=== PATIENT | male | born 1995 | race Caucasian/White ===

== ENCOUNTER 2017-03-01 13:19 | Inpatient (IN) | payer OTHER ==
[~2017-03-01 13:19] MED LIST: DEXAMETHASONE SOD PHOSPHATE INJ 4 MG/1 ML VIAL ONE; ETOMIDATE INJ/PF 20 MG/10 ML SDV IV ONE; GLYCOPYRROLATE INJ 0.4 MG/2 ML VIAL ONE; LIDOCAINE 2% INJ-PF (20 MG/ML) 10 ML AMPUL ONE; METOCLOPRAMIDE HCL INJ/PF 10 MG/2 ML SDV ONE; NEOSTIGMINE METHYLSULFATE 10 MG/10 ML VIAL ONE; ONDANSETRON HCL INJ/PF 4 MG/2 ML SDV ONE; ROCURONIUM BROMIDE INJ 50 MG/5 ML VIAL IV ONE; SUCCINYLCHOLINE CHLORIDE INJ 200 MG/10 ML VIAL ONE
--- NOTE | 2017-03-01 13:50 | ER Document Report ---
ED Medical Screen (RME) - General Chief Complaint: Bloody Stools Stated Complaint: BLOOD IN STOOL,LIGHT HEADED Time Seen by Provider: 03/01/17 13:47 Notes: Patient says that he has had bleeding with his bowel movements four times this morning patient has a history of an upper GI bleed from ulcers when he was 16 years old, 5 years ago. Has not had any vomiting. Has some epigastric discomfort. No fevers. Only medication is [id number] Zantac. TRAVEL OUTSIDE OF THE [place] IN LAST 30 DAYS: No - Related Data Allergies/Adverse Reactions: cephalexin monohydrate [From Keflex] Allergy (Verified 01/03/12 03:34) codeine [Codeine] Allergy (Verified 01/03/12 03:34) Past Medical History Pulmonary Medical History: Denies: Hx Tuberculosis Neurological Medical History: Denies: Hx Seizures Renal/ Medical History: Denies: Hx Peritoneal Dialysis GI Medical History: Reports: Hx Ulcer Musculoskeltal Medical History: Reports Hx Musculoskeletal Deformity Past Surgical History: Reports: Hx Orthopedic Surgery. Denies: Hx Pacemaker - Immunizations Immunizations up to date: No Hx Diphtheria, Pertussis, Tetanus Vaccination: No Physical Exam - Vital signs Vitals: Temp Pulse Resp BP Pulse Ox 97.7 F 89 14 99/63 L 99 03/01/17 13:25 03/01/17 13:25 03/01/17 13:25 03/01/17 13:25 03/01/17 13:25 Course - Vital Signs Vital signs: Temp Pulse Resp BP Pulse Ox 97.7 F 89 14 99/63 L 99 03/01/17 13:25 03/01/17 13:25 03/01/17 13:25 03/01/17 13:25 03/01/17 13:25
[2017-03-01] MEDS ORDERED: NORMAL SALINE 1000 ML 1,000 ML IV PRN (13:54)
[2017-03-01 14:27] LABS: ABSOLUTE LYMPHOCYTES (AUTO) 0.9 10^3/uL (0.5-4.7); ABSOLUTE MONOCYTES (AUTO) 0.5 10^3/uL (0.1-1.4); ABSOLUTE NEUT (AUTO) 9.4 10^3/uL (1.7-8.2); BASOPHILS % (AUTO) 0.4 % (0-2); EOSINOPHILS % (AUTO) 0.4 % (0-6); HEMATOCRIT 36.3 % (37.9-51.0); HEMOGLOBIN 12.7 g/dL (13.5-17.0); HGB HCT DIFFERENCE 1.8; LYMPHOCYTES % (AUTO) 8.1 % (13-45); MEAN CORPUSCULAR HEMOGLOBIN 31.7 pg (27.0-33.4); MEAN CORPUSCULAR HGB CONC 35.1 g/dL (32.0-36.0); MEAN CORPUSCULAR VOLUME 90 fl (80-97); MONOCYTES % (AUTO) 4.4 % (3-13); RED BLOOD COUNT 4.02 10^6/uL (4.35-5.55); RED CELL DISTRIBUTION WIDTH 12.1 % (11.5-14.0); SEGMENTED NEUTROPHILS % (AUTO) 86.7 % (42-78); WHITE BLOOD COUNT 10.9 10^3/uL (4.0-10.5)
[2017-03-01] MEDS ORDERED: PANTOPRAZOLE SODIUM 40 MG VIAL IV ONE (14:33)
[2017-03-01 14:48] LABS: ALANINE AMINOTRANSFERASE 28 U/L (21-72); ALBUMIN 3.8 g/dL (3.5-5.0); ALKALINE PHOSPHATASE 59 U/L (38-126); ANION GAP 6 (5-19); ASPARTATE AMINO TRANSFERASE 18 U/L (17-59); BILIRUBIN,DIRECT 0.3 mg/dL (0.0-0.4); BLOOD UREA NITROGEN 23 mg/dL (7-20); CALCIUM 9.7 mg/dL (8.4-10.2); CARBON DIOXIDE 27 mmol/L (22-30); CHLORIDE 106 mmol/L (98-107); CREATININE RESULT 0.93 mg/dL (0.52-1.25); GLUCOSE 108 mg/dL (75-110); LIPASE 53.2 U/L (23-300); POTASSIUM 5.4 mmol/L (3.6-5.0); SODIUM 139.3 mmol/L (137-145); TOTAL PROTEIN 6.4 g/dL (6.3-8.2)
[2017-03-01 15:23] LABS: PROTHROMBIN TIME 16.1 SEC (11.4-15.4)
[2017-03-01] MEDS: PANTOPRAZOLE SODIUM 40 MG VIAL IV PRN (15:57)
--- NOTE | 2017-03-01 16:08 | ER Document Report ---
ED GI Bleed / Rectal Pain - General Information source: Patient TRAVEL OUTSIDE OF THE [place] IN LAST 30 DAYS: No - HPI Patient complains to provider of: Bright red bld from rect., Dark red bld from rectum, Dark/tarry stools, Other - States she had a history of the same when he was approximately 16 which was the result of a bleeding ulceration in the stomach. <JESSICAMANUELJEFF Zoe - Last Filed: 03/01/17 18:38> <TERRY PEREZ - Last Filed: 03/01/17 19:13> - General Chief Complaint: Bloody Stools Stated Complaint: POSSIBLE BLOODS IN STOOL,DIZZINESS Time Seen by Provider: 03/01/17 13:47 - Related Data Allergies/Adverse Reactions: cephalexin monohydrate [From Keflex] Allergy (Verified 01/03/12 03:34) codeine [Codeine] Allergy (Verified 01/03/12 03:34) Past Medical History - General Information source: Patient - Social History Smoking Status: Never Smoker Cigarette use (# per day): No Chew tobacco use (# tins/day): No Frequency of alcohol use: None Drug Abuse: None Lives with: Family Family History: DM Pulmonary Medical History: Denies: Hx Tuberculosis Neurological Medical History: Denies: Hx Seizures Renal/ Medical History: Denies: Hx Peritoneal Dialysis GI Medical History: Reports: Hx Ulcer Musculoskeltal Medical History: Reports Hx Musculoskeletal Deformity Past Surgical History: Reports: Hx Orthopedic Surgery. Denies: Hx Pacemaker - Immunizations Immunizations up to date: No Hx Diphtheria, Pertussis, Tetanus Vaccination: No <CELESTINOJEFF Zoe - Last Filed: 03/01/17 18:38> Review of Systems - Review of Systems Constitutional: No symptoms reported EENT: No symptoms reported Cardiovascular: No symptoms reported Respiratory: No symptoms reported Gastrointestinal: No symptoms reported, Black stools, Rectal bleeding Genitourinary: No symptoms reported Male Genitourinary: No symptoms reported Musculoskeletal: No symptoms reported Skin: No symptoms reported Hematologic/Lymphatic: No symptoms reported Neurological/Psychological: No symptoms reported <CELESTINOJEFF Zoe - Last Filed: 03/01/17 18:38> Physical Exam - Vital signs Interpretation: Normal - General General appearance: Appears well, Alert - HEENT Head: Normocephalic, Atraumatic Eyes: Normal Pupils: PERRL - Respiratory Respiratory status: No respiratory distress Chest status: Nontender Breath sounds: Normal Chest palpation: Normal - Cardiovascular Rhythm: Regular Heart sounds: Normal auscultation Murmur: No - Abdominal Inspection: Normal Distension: No distension Bowel sounds: Normal Tenderness: Nontender Organomegaly: No organomegaly - Rectal Stool: Heme positive, Black, Bloody - Back Back: Normal, Nontender - Extremities General upper extremity: Normal inspection, Nontender, Normal color, Normal ROM , Normal temperature General lower extremity: Normal inspection, Nontender, Normal color, Normal ROM , Normal temperature, Normal weight bearing. No: Rich's sign - Neurological Neuro grossly intact: Yes Cognition: Normal Orientation: AAOx4 [place] Coma Scale Eye Opening: Spontaneous Verenice Coma Scale Verbal: Oriented Verenice Coma Scale Motor: Obeys Commands [place] Coma Scale Total: 15 Speech: Normal Motor strength normal: LUE, RUE, LLE, RLE Sensory: Normal - Psychological Associated symptoms: Normal affect, Normal mood - Skin Skin Temperature: Warm Skin Moisture: Dry Skin Color: Normal <JEFF TIRADO - Last Filed: 03/01/17 18:38> Course - Laboratory Result Diagrams: 03/01/17 14:13 03/01/17 14:13 <JEFF TIRADO - Last Filed: 03/01/17 18:38> - Laboratory Result Diagrams: 03/01/17 14:13 03/01/17 14:13 <TERRY PEREZ - Last Filed: 03/01/17 19:13> - Re-evaluation Re-evalutation: 03/01/17 16:05 Dr. Oates of surgery was called did not have GI science consultant. He was advised of the patient's situation with dark and bright red blood coming from the rectum history of a bleeding stomach ulceration hemoglobin and hematocrit of 12.7 and 36.3 respectively he was advised that the patient does in fact look ashen it is my suspicion that the numbers will be lower upon a redraw. The patient is not tachycardic the patient is not hypertensive patient does have Protonix IV running as well as has been provided with a fluid bolus and blood banded. Dr. Oates was kind enough to come and evaluate the patient he did request that the patient remain n.p.o. which he has been since this morning. An NPO sign was palced outside the Pt room. (JEFF TIRADO) - Vital Signs Vital signs: Temp Pulse Resp BP Pulse Ox 97.7 F 89 14 99/63 L 99 03/01/17 13:25 03/01/17 13:25 03/01/17 13:25 03/01/17 13:25 03/01/17 13:25 - Laboratory Laboratory results interpreted by me: 03/01/17 03/01/17 03/01/17 14:13 14:13 15:05 WBC 10.9 H RBC 4.02 L Hgb 12.7 L Hct 36.3 L Seg Neutrophils % 86.7 H Lymphocytes % 8.1 L Absolute Neutrophils 9.4 H PT 16.1 H Potassium 5.4 H BUN 23 H Crossmatch 03/01/17 16:00 WBC RBC Hgb Hct Seg Neutrophils % Lymphocytes % Absolute Neutrophils PT Potassium BUN Crossmatch See Detail Discharge <JEFF TIRADO - Last Filed: 03/01/17 18:38> - Discharge Admitting Provider: Surgicalist - Su Unit Admitted: ICU <TERRY PEREZ - Last Filed: 03/01/17 19:13> - Discharge Clinical Impression: Acute posthemorrhagic anemia, Acute upper gastrointestinal hemorrhage Condition: Serious Disposition: ADMITTED INPATIENT Additional Instructions: Dr. Henderson stated that this patient will be admitted to his service at 1832 hours
[2017-03-01] MEDS ORDERED: ONDANSETRON HCL INJ/PF 4 MG/2 ML SDV ONE ×2 (17:37→19:10)
[2017-03-01] MEDS ORDERED: FLUMAZENIL INJ 0.5 MG/5 ML VIAL IV ONE ×2 (17:38→19:12)
[2017-03-01] MEDS ORDERED: MIDAZOLAM 2 MG/2 ML INJ ONE ×2 (17:38→20:04)
[2017-03-01] MEDS ORDERED: EPINEPHRINE INJ 1 MG/10 ML DISP.SYRIN ONE ×2 (17:38→19:12)
[2017-03-01] MEDS ORDERED: FENTANYL CITRATE INJ/PF 100 MCG/2 ML AMPUL ONE ×3 (17:38→20:04)
[2017-03-01] MEDS ORDERED: NALOXONE HCL INJ/PF 0.4 MG/1 ML SDV ONE ×2 (17:38→19:11)
[2017-03-01] MEDS ORDERED: GLUCAGON,HUMAN RECOMB 1 MG INJ ONE ×2 (17:39→19:12)
[2017-03-01] MEDS ORDERED: ONDANSETRON HCL INJ/PF 4 MG/2 ML SDV IV ONE (18:13)
[2017-03-01] MEDS ORDERED: NORMAL SALINE 250 ML IV PRN (18:28)
[2017-03-01 18:54] LABS: ABSOLUTE BASOPHILS # (AUTO) 0.1 10^3/uL (0.0-0.2); ABSOLUTE EOSINOPHILS # (AUTO) 0.1 10^3/uL (0.0-0.6); ABSOLUTE MONOCYTES (AUTO) 0.5 10^3/uL (0.1-1.4); ABSOLUTE NEUT (AUTO) 6.9 10^3/uL (1.7-8.2); BASOPHILS % (AUTO) 0.7 % (0-2); HEMATOCRIT 27.2 % (37.9-51.0); HGB HCT DIFFERENCE 0.7; SEGMENTED NEUTROPHILS % (AUTO) 67.6 % (42-78)
[2017-03-01] MEDS ORDERED: GLYCOPYRROLATE INJ 0.4 MG/2 ML VIAL ONE (19:11)
[2017-03-01 19:14] LABS: ABSOLUTE LYMPHOCYTES (AUTO) 2.7 10^3/uL (0.5-4.7); EOSINOPHILS % (AUTO) 0.7 % (0-6); MEAN CORPUSCULAR HEMOGLOBIN 30.9 pg (27.0-33.4); MEAN CORPUSCULAR HGB CONC 34.1 g/dL (32.0-36.0); MEAN CORPUSCULAR VOLUME 91 fl (80-97); RED CELL DISTRIBUTION WIDTH 12.3 % (11.5-14.0); WHITE BLOOD COUNT 10.2 10^3/uL (4.0-10.5)
[2017-03-01 19:17] LABS: HEMOGLOBIN 9.3 g/dL (13.5-17.0)
[2017-03-01] MEDS: MIDAZOLAM 2 MG/2 ML INJ ONE ×2 (19:26→19:36)
[2017-03-01] MEDS ORDERED: HYDROMORPHONE HCL INJ/PF 2 MG/ML AMPULE ONE (20:04)
[2017-03-01] MEDS ORDERED: IBUPROFEN INJ 800 MG/8 ML VIAL IV ONE (20:05)
[2017-03-01] MEDS ORDERED: PROPOFOL INJ 200 MG/20 ML VIAL IV ONE (20:05)
[2017-03-01] MEDS ORDERED: ACETAMINOPHEN 100 ML IV ONE (20:05)
[2017-03-01] MEDS ORDERED: FENTANYL CITRATE INJ/PF 250 MCG/5 ML AMPULE ONE (20:34)
[2017-03-01] MEDS ORDERED: FENTANYL CITRATE INJ/PF 100 MCG/2 ML AMPUL IV PRN ×3 (21:46)
[2017-03-01] MEDS ORDERED: ONDANSETRON HCL INJ/PF 4 MG/2 ML SDV IV PRN (21:46)
[2017-03-01] MEDS ORDERED: PROMETHAZINE HCL INJ 25 MG/1 ML VIAL IV PRN ×2 (21:46)
[2017-03-01] MEDS ORDERED: DIPHENHYDRAMINE HCL 50 MG/ML VIAL IV PRN (21:46)
[2017-03-01] MEDS ORDERED: MEPERIDINE HCL/PF INJ 25 MG/1 ML DISP.SYRIN IV PRN (21:46)
[2017-03-01 21:57] LABS: HEMATOCRIT 27.8 % (37.9-51.0); HEMOGLOBIN 9.5 g/dL (13.5-17.0); HGB HCT DIFFERENCE 0.7; MEAN CORPUSCULAR HEMOGLOBIN 30.1 pg (27.0-33.4); MEAN CORPUSCULAR HGB CONC 34.2 g/dL (32.0-36.0); MEAN CORPUSCULAR VOLUME 88 fl (80-97); RED BLOOD COUNT 3.16 10^6/uL (4.35-5.55); RED CELL DISTRIBUTION WIDTH 14.1 % (11.5-14.0); WHITE BLOOD COUNT 14.1 10^3/uL (4.0-10.5)
[2017-03-01 22:05] LABS: PROTHROMBIN TIME 17.4 SEC (11.4-15.4)
[2017-03-01 22:06] LABS: PARTIAL THROMBOPLASTIN TIME 33.7 SEC (23.5-35.8)
[2017-03-01] MEDS ORDERED: BUPIVACAINE HCL 0.25 % INJ/PF (2.5 MG/1 ML) 30 ML VIAL INJ ONE (23:30)
[2017-03-01] MEDS ORDERED: BUPIVACAINE HCL 0.25 % INJ/PF (2.5 MG/1 ML) 30 ML VIAL ONE (23:40)
--- NOTE | 2017-03-01 23:51 | RADIOLOGY REPORT (SQ) ---
EXAM DESCRIPTION: KUB/ABDOMEN (SINGLE VIEW) COMPLETED DATE/TIME: 03/01/2017 11:22 pm REASON FOR STUDY: CLOSING COUNT COMPARISON: None. NUMBER OF VIEWS: One view. TECHNIQUE: Supine radiographic image of the abdomen acquired. LIMITATIONS: None. FINDINGS: BOWEL GAS PATTERN: Nonspecific bowel gas pattern. . CALCIFICATIONS: No suspicious calcifications. SOFT TISSUES: No gross mass or suggestion of organomegaly. HARDWARE: Drainage catheter in the right upper quadrant. Nasogastric catheter and Moran catheters ar e in expected position. No other radiopaque foreign bodies identified. BONES: No acute fracture. No worrisome bone lesions. OTHER: No other significant finding. IMPRESSION: Drainage catheter in the right upper quadrant. Nasogastric catheter and Moran catheters are in expected position. No other radiopaque foreign bodies identified. TECHNICAL DOCUMENTATION: JOB ID: [id number] [employer]- All Rights Reserved
[2017-03-02] MEDS ORDERED: ONDANSETRON HCL INJ/PF 4 MG/2 ML SDV IV PRN (00:12)
[2017-03-02] MEDS ORDERED: MORPHINE SULFATE 10 MG/ML INJ IV PRN (00:12)
[2017-03-02] MEDS: NORMAL SALINE 1000 ML 1,000 ML IV PRN ×2 (00:49→21:32)
--- NOTE | 2017-03-02 01:04 | Operative Report ---
Operative Report DATE OF SURGERY: 03/01/17 PREOPERATIVE DIAGNOSIS: Duodenal ulcer bleed POSTOPERATIVE DIAGNOSIS: Duodenal ulcer bleed OPERATION: Oversew of duodenal ulcer bleed, pyloroplasty, truncal vagotomy. SURGEON: MAYANK SHAH ANESTHESIA: GA TISSUE REMOVED OR ALTERED: Right and left vagus nerves COMPLICATIONS: None ESTIMATED BLOOD LOSS: 300 cc INTRAOPERATIVE FINDINGS: Posterior deep duodenal ulcer at junction of first and second portion of the duodenum with bleeding exposed gastroduodenal artery at the base. PROCEDURE: Informed consent was obtained. Patient was brought to the operating room and placed on the operating room table in the supine position. After satisfactory induction of general anesthesia patient's abdomen was prepped and draped in the usual sterile fashion. A upper midline incision was made dissection carried down through the fascia and the peritoneal cavity was entered without difficulty. Bookwalter retractor was used during the case. Isaiah maneuver was performed first. Longitutional enterotomy was made at the pylorus extending thru the first portion of the duodenum. There was a deep-seated posterior duodenal ulcer at the junction between the first and second portion the duodenum with an exposed vessel that was briskly bleeding. Compression was applied to this vessel. Exposure was extremely difficult due to the deep ulcer and its posterior location. After focal compression was applied to the vessel there was transient hemostasis allowing placement of a mattressing silk suture to obtain hemostasis. Mattressing sutures were placed superior and inferior to this vessel well. The sutures were very difficult to place due to the location and depth of the ulcer. Hemostasis appeared to be good. The ulcer was copiously irrigated and there was no evidence of bleeding. Once I was confident of control of this gastroduodenal artery bleed, the enterotomy extending from the pylorus thru the first portion of the duodenum was closed in a transverse direction thus performing a pyloroplasty using interrupted Vicryl sutures. The phrenoesophageal membrane was incised and the esophagus was mobilized and encircled with a Mayflower drain. The right vagus was identified and it was clipped and divided with a segment resected and submitted to pathology. The left vagus was identified and was clipped and divided with a segment resected and submitted to pathology. Hemostasis appeared excellent. Due to the fact that it was an emergency procedure instrument counts had not been performed prior to the procedure therefore an x-ray was performed at the end of the case which demonstrated no evidence of retained instruments nor sponges. Of note sponge count was able to be performed prior to the procedure and the sponge count was correct. A Kiko-Sanchez drain was placed to dependent to the pyloroplasty and it was brought out through a separate stab incision in the patient's right abdomen and sutured in place. The fascia was closed with running PDS suture. Skin was closed with jason. Marcaine was injected at the operative incision. Patient tolerated procedure well with no apparent complications and was taken to the recovery area in stable condition.
--- NOTE | 2017-03-02 01:07 | PDOC H&P ---
History of Present Illness Patient complains of: dark blood per rectum History of Present Illness: MATT TORRE is a 21 year old male with history of peptic ulcer disease status post gastrointestinal bleeding several years ago. Patient had been on chronic proton pump inhibitor therapy but switched over to Zantac couple months ago. No history of alcohol nor NSAID abuse. patient was feeling well up until this morning when he began to pass dark blood per rectum several times. Patient has been hemodynamically stable up until just now when he became diaphoretic with tachycardia to 106. Presyncope. Past Medical History Pulmonary Medical History: Denies: Tuberculosis Neurological Medical History: Denies: Seizures GI Medical History: Reports: Peptic Ulcer Disease Past Surgical History Past Surgical History: Reports: Orthopedic Surgery Denies: Pacemaker Social History Lives with: Family Smoking Status: Unknown if Ever Smoked Frequency of Alcohol Use: Rare Hx Recreational Drug Use: No Hx Prescription Drug Abuse: No Family History Family History: DM Parental Family History Reviewed: No Children Family History Reviewed: No Sibling(s) Family History Reviewed.: No Medication/Allergy Allergies/Adverse Reactions: cephalexin monohydrate [From Keflex] Allergy (Verified 01/03/12 03:34) codeine [Codeine] Allergy (Verified 01/03/12 03:34) Physical Exam Vital Signs: Temp Pulse Resp BP Pulse Ox 97.7 F 89 14 99/63 L 99 03/01/17 13:25 03/01/17 13:25 03/01/17 13:25 03/01/17 13:25 03/01/17 13:25 Intake & Output 02/28/17 03/01/17 03/02/17 06:59 06:59 06:59 Weight 94.2 kg General appearance: PRESENT: cooperative Respiratory exam: PRESENT: clear to auscultation loree Cardiovascular exam: PRESENT: tachycardia Vascular exam: PRESENT: normal capillary refill, pallor GI/Abdominal exam: PRESENT: other - Soft, nondistended, nontender to palpation. Extremities exam: PRESENT: other - warm Results Laboratory Results: 03/01/17 14:13 03/01/17 14:13 03/01/17 03/01/17 03/01/17 14:13 14:13 15:40 WBC 10.9 H RBC 4.02 L Hgb 12.7 L Hct 36.3 L MCV 90 MCH 31.7 MCHC 35.1 RDW 12.1 Plt Count 281 Seg Neutrophils % 86.7 H Lymphocytes % 8.1 L Monocytes % 4.4 Eosinophils % 0.4 Basophils % 0.4 Absolute Neutrophils 9.4 H Absolute Lymphocytes 0.9 Absolute Monocytes 0.5 Absolute Eosinophils 0.0 Absolute Basophils 0.0 Sodium 139.3 Potassium 5.4 H Chloride 106 Carbon Dioxide 27 Anion Gap 6 BUN 23 H Creatinine 0.93 Est GFR ( Amer) > 60 Est GFR (Non-Af Amer) > 60 Glucose 108 Calcium 9.7 Total Bilirubin 1.0 AST 18 ALT 28 Alkaline Phosphatase 59 Total Protein 6.4 Albumin 3.8 Lipase 53.2 Stool Occult Blood NEGATIVE Assessment & Plan - Diagnosis (1) Gastrointestinal bleeding Is this a current diagnosis for this admission?: YesPlan: Most likely duodenal ulcer bleed. Initially patient was stable and was to be transferred for interventional endoscopic procedure since gastroenterology is not available here. However patient has become hemodynamically unstable with tachycardia. Will go ahead and transfuse couple units of blood and performed the upper endoscopy now. Discussed with pt risk and benefits.
--- NOTE | 2017-03-02 01:18 | Operative Report ---
Operative Report DATE OF SURGERY: 03/01/17 PREOPERATIVE DIAGNOSIS: Duodenal ulcer bleed POSTOPERATIVE DIAGNOSIS: Duodenal ulcer bleed OPERATION: Esophagogastroduodenoscopy SURGEON: MAYANK SHAH ANESTHESIA: Moderate Sedation TISSUE REMOVED OR ALTERED: None COMPLICATIONS: None ESTIMATED BLOOD LOSS: 300 cc INTRAOPERATIVE FINDINGS: Dark blood in the stomach but no evidence of active bleeding in the stomach. Blood clot at the duodenum at the junction between the first and second portion with no evidence of active bleeding initially. However at the very end of the procedure brisk arterial bleeding noted. PROCEDURE: Informed consent was obtained. Procedure was performed in the emergency room. IV sedation with Versed and fentanyl was administered. Endoscope was passed via the patient's mouth into the stomach. The esophagus appeared grossly normal. The stomach had large amount of dark blood. Irrigation and aspiration was performed in the stomach to clear the stomach of the blood. No evidence of active bleeding was noted in the stomach. The endoscope was then passed into the duodenum. At the junction between the first and second portion the duodenum there was a blood clot. No irrigation was performed in this region. Great care was taken to avoid dislodging this blood clot. I watched this region for a few minutes and with no bleeding at this site the scope was withdrawn into the stomach. Air was aspirated out of the stomach with decompression of the stomach at which time blood began to pour out from the pylorus. The scope was placed back into the duodenal bulb and brisk arterial bleed was seen at the region where the clot had been seen before. The scope was withdrawn desufflating air. Discussion was made with the family concerning emergency operation for control of apparent gastroduodenal artery bleed at the base of his duodenal ulcer. Patient was taken emergently to the operating room for surgery. As we were preparing the patient for surgery I had a discussion with the family concerning the nature of the surgery and plans to probably include a vagotomy with the risk and benefits of the procedure including risk of infection, bleeding, recurrent bleeding, poor healing at the enterotomy site , adjacent structure injury and gastric function derangements after vagotomy and pyloroplasty. They understand and agree to proceed.
--- NOTE | 2017-03-02 01:29 | PDOC PROGRESS REPORT ---
Subjective Progress Note for:: 03/02/17 Subjective:: Upper abdominal pain but otherwise feels okay. Physical Exam Vital Signs: Temp Pulse Resp BP Pulse Ox 98.2 F 74 18 124/71 96 03/02/17 00:01 03/02/17 00:31 03/02/17 00:31 03/02/17 00:31 03/02/17 00:31 Intake & Output 02/28/17 03/01/17 03/02/17 06:59 06:59 06:59 Intake Total 800 Output Total 0 Balance 800 General appearance: PRESENT: no acute distress, cooperative Respiratory exam: PRESENT: clear to auscultation loree Cardiovascular exam: PRESENT: RRR GI/Abdominal exam: PRESENT: other - Soft, Mildly distended, appropriate tenderness at the midline. Drain output is blood-tinged. NG output is minimal. Results Laboratory Results: 03/01/17 21:48 03/01/17 21:48 WBC 14.1 H RBC 3.16 L Hgb 9.5 L Hct 27.8 L MCV 88 MCH 30.1 MCHC 34.2 RDW 14.1 H Plt Count 175 Impressions: KUB X-Ray 03/01/17 00:00 IMPRESSION: Drainage catheter in the right upper quadrant. Nasogastric catheter and Moran catheters are in expected position. No other radiopaque foreign bodies identified. Assessment & Plan - Diagnosis (1) Gastrointestinal bleeding Qualifiers: GI bleed type/associated pathology: duodenal ulcer Qualified Code(s) : K26.4 - Chronic or unspecified duodenal ulcer with hemorrhage Is this a current diagnosis for this admission?: YesPlan: Status post artery at base of duodenal ulcer oversew with pyloroplasty and vagotomy. Patient looks very good postoperatively. No evidence of recurrent bleed. Hold all anticoagulation. Continue proton pump inhibitor. Keep NG tube in place. Plan to keep the patient in the unit at least through the first half of the day today. Made transfer out to the floor tomorrow if he continues to do well.
[2017-03-02] MEDS: HYDROMORPHONE HCL INJ/PF 2 MG/ML AMPULE IV PRN ×5 (02:09→20:00)
[2017-03-02] MEDS ORDERED: PANTOPRAZOLE SODIUM 40 MG VIAL IV PRN (02:15)
[2017-03-02] MEDS: PANTOPRAZOLE SODIUM 40 MG VIAL IV PRN (02:15)
[2017-03-02 04:54] LABS: HEMATOCRIT 30.6 % (37.9-51.0); HEMOGLOBIN 10.5 g/dL (13.5-17.0); HGB HCT DIFFERENCE 0.9; MEAN CORPUSCULAR HEMOGLOBIN 29.7 pg (27.0-33.4); MEAN CORPUSCULAR HGB CONC 34.4 g/dL (32.0-36.0); MEAN CORPUSCULAR VOLUME 86 fl (80-97); RED BLOOD COUNT 3.55 10^6/uL (4.35-5.55); RED CELL DISTRIBUTION WIDTH 14.4 % (11.5-14.0); WHITE BLOOD COUNT 19.6 10^3/uL (4.0-10.5)
[2017-03-02 05:25] LABS: ALANINE AMINOTRANSFERASE 62 U/L (21-72); ALBUMIN 2.8 g/dL (3.5-5.0); ALKALINE PHOSPHATASE 45 U/L (38-126); ANION GAP 7 (5-19); ASPARTATE AMINO TRANSFERASE 44 U/L (17-59); BILIRUBIN,DIRECT 0.4 mg/dL (0.0-0.4); BLOOD UREA NITROGEN 21 mg/dL (7-20); CALCIUM 8.5 mg/dL (8.4-10.2); CARBON DIOXIDE 21 mmol/L (22-30); CHLORIDE 110 mmol/L (98-107); CREATININE RESULT 0.77 mg/dL (0.52-1.25); GLUCOSE 125 mg/dL (75-110); SODIUM 137.6 mmol/L (137-145); TOTAL PROTEIN 4.9 g/dL (6.3-8.2)
[2017-03-02 05:30] LABS: POTASSIUM 4.4 mmol/L (3.6-5.0)
[2017-03-02] MEDS: NORMAL SALINE 100 ML with PANTOPRAZOLE SODIUM 80 MG IV PRN ×4 (09:26→17:54)
--- NOTE | 2017-03-02 15:35 | PDOC PROGRESS REPORT ---
Subjective Progress Note for:: 03/02/17 Subjective:: Remains hemodynamically stable; Moran catheter out but has not voided; patient has been out of bed. Pain reasonably controlled. Physical Exam Vital Signs: Temp Pulse Resp BP Pulse Ox 98.1 F 107 H 16 134/80 H 98 03/02/17 14:00 03/02/17 14:00 03/02/17 14:00 03/02/17 14:00 03/02/17 14:00 Intake & Output 03/01/17 03/02/17 03/03/17 06:59 06:59 06:59 Intake Total 5200 Output Total 1342 490 Balance 3858 -490 Weight 101.5 kg General appearance: PRESENT: mild distress GI/Abdominal exam: PRESENT: other - Appropriately tender. Drain putting out serosanguineous material; NG tube with minimal material. Results Laboratory Results: 03/02/17 04:12 03/02/17 04:12 03/01/17 03/02/17 03/02/17 21:48 04:12 04:12 WBC 14.1 H 19.6 H RBC 3.16 L 3.55 L Hgb 9.5 L 10.5 L Hct 27.8 L 30.6 L MCV 88 86 MCH 30.1 29.7 MCHC 34.2 34.4 RDW 14.1 H 14.4 H Plt Count 175 187 Sodium 137.6 Potassium 4.4 D Chloride 110 H Carbon Dioxide 21 L Anion Gap 7 BUN 21 H Creatinine 0.77 Est GFR ( Amer) > 60 Est GFR (Non-Af Amer) > 60 Glucose 125 H Calcium 8.5 Total Bilirubin 2.0 H AST 44 ALT 62 Alkaline Phosphatase 45 Total Protein 4.9 L Albumin 2.8 L Impressions: KUB X-Ray 03/01/17 00:00 IMPRESSION: Drainage catheter in the right upper quadrant. Nasogastric catheter and Moran catheters are in expected position. No other radiopaque foreign bodies identified. Assessment & Plan - Diagnosis (1) Gastrointestinal bleeding Qualifiers: GI bleed type/associated pathology: duodenal ulcer Qualified Code(s) : K26.4 - Chronic or unspecified duodenal ulcer with hemorrhage Is this a current diagnosis for this admission?: YesPlan: Now 1 day status post exploratory laparotomy, pyloral laxity, control of bleeding duodenal ulcer, truncal vagotomy doing well, no clinical evidence of bleeding. Tolerated extubation, awaiting voiding post Moran catheter extraction Plan: 1. We will keep in ICU today; consider transfer to floor tomorrow 2. We will get out of bed into chair. 3. We will consider removing nasogastric tube tomorrow.
[2017-03-03] MEDS: HYDROMORPHONE HCL INJ/PF 2 MG/ML AMPULE IV PRN ×6 (01:08→23:26)
[2017-03-03 06:01] LABS: HEMOGLOBIN 9.5 g/dL (13.5-17.0); HGB HCT DIFFERENCE 1.5; MEAN CORPUSCULAR HEMOGLOBIN 30.5 pg (27.0-33.4); MEAN CORPUSCULAR HGB CONC 35.2 g/dL (32.0-36.0); MEAN CORPUSCULAR VOLUME 87 fl (80-97); RED BLOOD COUNT 3.12 10^6/uL (4.35-5.55); RED CELL DISTRIBUTION WIDTH 14.1 % (11.5-14.0); WHITE BLOOD COUNT 10.6 10^3/uL (4.0-10.5)
[2017-03-03 06:14] LABS: ALANINE AMINOTRANSFERASE 56 U/L (21-72); ALBUMIN 2.8 g/dL (3.5-5.0); ALKALINE PHOSPHATASE 45 U/L (38-126); ANION GAP 7 (5-19); ASPARTATE AMINO TRANSFERASE 39 U/L (17-59); BILIRUBIN,DIRECT 0.3 mg/dL (0.0-0.4); BILIRUBIN,TOTAL 0.9 mg/dL (0.2-1.3); BLOOD UREA NITROGEN 14 mg/dL (7-20); CALCIUM 8.5 mg/dL (8.4-10.2); CARBON DIOXIDE 25 mmol/L (22-30); CHLORIDE 106 mmol/L (98-107); GLUCOSE 93 mg/dL (75-110); POTASSIUM 3.7 mmol/L (3.6-5.0); SODIUM 137.6 mmol/L (137-145); TOTAL PROTEIN 5.1 g/dL (6.3-8.2)
[2017-03-03] MEDS: NORMAL SALINE 100 ML with PANTOPRAZOLE SODIUM 80 MG IV PRN ×4 (07:11→17:58)
[2017-03-03] MEDS: NORMAL SALINE 1000 ML 1,000 ML IV PRN (09:28)
--- NOTE | 2017-03-03 09:44 | PDOC PROGRESS REPORT ---
Subjective Progress Note for:: 03/03/17 Subjective:: Patient status post exploratory laparotomy, duodenotomy and oversewing of bleeding posterior duodenal ulcer. He is voiding without Moran catheter. He was transferred to the floor last p.m., with no complications Physical Exam Vital Signs: Temp Pulse Resp BP Pulse Ox 98.5 F 120 H 16 151/81 H 95 03/03/17 07:47 03/03/17 07:47 03/03/17 07:47 03/03/17 07:47 03/03/17 07:47 Intake & Output 03/02/17 03/03/17 03/04/17 06:59 06:59 06:59 Intake Total 5200 1860 Output Total 1342 1605 Balance 3858 255 Weight 101.5 kg 101.5 kg General appearance: PRESENT: mild distress GI/Abdominal exam: PRESENT: other - Midline incision dressing removed jason intact. Serosanguineous drainage from the drain. Results Laboratory Results: 03/03/17 05:47 03/03/17 05:47 03/03/17 03/03/17 05:47 05:47 WBC 10.6 H RBC 3.12 L Hgb 9.5 L Hct 27.0 L MCV 87 MCH 30.5 MCHC 35.2 RDW 14.1 H Plt Count 167 Sodium 137.6 Potassium 3.7 Chloride 106 Carbon Dioxide 25 Anion Gap 7 BUN 14 Creatinine 0.80 Est GFR ( Amer) > 60 Est GFR (Non-Af Amer) > 60 Glucose 93 Calcium 8.5 Total Bilirubin 0.9 AST 39 ALT 56 Alkaline Phosphatase 45 Total Protein 5.1 L Albumin 2.8 L Impressions: KUB X-Ray 03/01/17 00:00 IMPRESSION: Drainage catheter in the right upper quadrant. Nasogastric catheter and Moran catheters are in expected position. No other radiopaque foreign bodies identified. Assessment & Plan - Diagnosis (1) Gastrointestinal bleeding Qualifiers: GI bleed type/associated pathology: duodenal ulcer Qualified Code(s) : K26.4 - Chronic or unspecified duodenal ulcer with hemorrhage Is this a current diagnosis for this admission?: YesPlan: 1. Patient now 2 days status post exploratory laparotomy, oversewing of bleeding posterior duodenal ulcer, doing well, no complications thus far. 2. Plan of the day: Begin out of bed to chair, ambulating Start ice chips; leave drain in position Monitor hemoglobin which is dropped slightly. I spoke with the patient's father and other relatives this morning about patient 's progress.
[2017-03-04] MEDS: NORMAL SALINE 1000 ML 1,000 ML IV PRN (02:27)
[2017-03-04] MEDS: HYDROMORPHONE HCL INJ/PF 2 MG/ML AMPULE IV PRN ×2 (03:48→09:10)
[2017-03-04] MEDS: NORMAL SALINE 100 ML with PANTOPRAZOLE SODIUM 80 MG IV PRN ×2 (04:12)
[2017-03-04] MEDS ORDERED: DOCUSATE SODIUM 100 MG CAPSULE PO PRN (12:42)
[2017-03-04] MEDS: OXYCODONE-ACETAMINOPHEN 5-325 MG TABLET PO PRN ×3 (13:14→21:24)
[2017-03-05] MEDS: OXYCODONE-ACETAMINOPHEN 5-325 MG TABLET PO PRN ×5 (01:19→23:49)
[2017-03-05] MEDS ORDERED: DOCUSATE SODIUM 100 MG CAPSULE PO SCH (10:00)
[2017-03-05] MEDS: HYDROMORPHONE HCL INJ/PF 2 MG/ML AMPULE IV PRN (10:26)
[2017-03-05] MEDS: FAMOTIDINE 20 MG TABLET PO SCH ×2 (10:26→21:18)
--- NOTE | 2017-03-05 16:48 | PDOC PROGRESS REPORT ---
Subjective Progress Note for:: 03/05/17 Subjective:: feeling better tolerating liquid diet Physical Exam Vital Signs: Temp Pulse Resp BP Pulse Ox 98.1 F 94 16 124/67 97 03/05/17 16:34 03/05/17 16:34 03/05/17 16:34 03/05/17 16:34 03/05/17 16:34 Intake & Output 03/04/17 03/05/17 03/06/17 06:59 06:59 06:59 Intake Total 100 960 Output Total 850 1260 50 Balance -750 -300 -50 Weight 99.6 kg 99.5 kg General appearance: PRESENT: no acute distress, well-developed, well-nourished Head exam: PRESENT: atraumatic, normocephalic Eye exam: PRESENT: conjunctiva pink, EOMI, PERRLA. ABSENT: scleral icterus Ear exam: PRESENT: normal external ear exam Mouth exam: PRESENT: moist, tongue midline Neck exam: ABSENT: carotid bruit, JVD, lymphadenopathy, thyromegaly Respiratory exam: PRESENT: clear to auscultation loree. ABSENT: rales, rhonchi, wheezes Cardiovascular exam: PRESENT: RRR. ABSENT: diastolic murmur, rubs, systolic murmur Pulses: PRESENT: normal dorsalis pedis pul Vascular exam: PRESENT: normal capillary refill GI/Abdominal exam: PRESENT: normal bowel sounds, soft, other - Abdomen soft non tender. ABSENT: distended, guarding, mass, organolmegaly, rebound, tenderness Rectal exam: PRESENT: deferred Extremities exam: PRESENT: full ROM. ABSENT: calf tenderness, clubbing, pedal edema Neurological exam: PRESENT: alert, awake, oriented to person, oriented to place , oriented to time, oriented to situation, CN II-XII grossly intact. ABSENT: motor sensory deficit Psychiatric exam: PRESENT: appropriate affect, normal mood. ABSENT: homicidal ideation, suicidal ideation Skin exam: PRESENT: dry, intact, warm. ABSENT: cyanosis, rash Results Laboratory Results: 03/03/17 05:47 03/03/17 05:47 Impressions: KUB X-Ray 03/01/17 00:00 IMPRESSION: Drainage catheter in the right upper quadrant. Nasogastric catheter and Moran catheters are in expected position. No other radiopaque foreign bodies identified. Assessment & Plan - Plan Summary Plan Summary: S/p repair of Bleeding DU Ileus resolving Advance diet
[2017-03-06] MEDS: OXYCODONE-ACETAMINOPHEN 5-325 MG TABLET PO PRN (07:50)
--- NOTE | 2017-03-06 08:16 | PDOC PROGRESS REPORT ---
Subjective Progress Note for:: 03/06/17 Subjective:: Feels well. Tolerating diet well. Having bowel movements. Dark stool but no fresh blood. Physical Exam Vital Signs: Temp Pulse Resp BP Pulse Ox 97.8 F 86 16 120/61 98 03/06/17 07:39 03/06/17 07:39 03/06/17 07:39 03/06/17 07:39 03/06/17 07:39 Intake & Output 03/05/17 03/06/17 03/07/17 06:59 06:59 06:59 Intake Total 960 1540 Output Total 1260 950 Balance -300 590 Weight 99.5 kg 97.3 kg General appearance: PRESENT: no acute distress, cooperative Respiratory exam: PRESENT: clear to auscultation loree Cardiovascular exam: PRESENT: RRR GI/Abdominal exam: PRESENT: other - Soft, nondistended, mild tenderness at the midline. Wound clean dry and intact. Results Laboratory Results: 03/03/17 05:47 03/03/17 05:47 Impressions: KUB X-Ray 03/01/17 00:00 IMPRESSION: Drainage catheter in the right upper quadrant. Nasogastric catheter and Moran catheters are in expected position. No other radiopaque foreign bodies identified. Assessment & Plan - Diagnosis (1) Gastrointestinal bleeding Qualifiers: GI bleed type/associated pathology: duodenal ulcer Qualified Code(s) : K26.4 - Chronic or unspecified duodenal ulcer with hemorrhage Is this a current diagnosis for this admission?: YesPlan: Status post artery at base of duodenal ulcer oversew with pyloroplasty and vagotomy. Patient looks very good postoperatively. No evidence of recurrent bleed. Patient doing well. Will discharge patient home today. Will empirically treat for H. pylori. Since he is allergic to cephalosporin, will treat with Helidac. We will keep the patient on proton pump inhibitor for now. Follow-up next week.
--- NOTE | 2017-03-06 08:53 | DISCHARGE SUMMARY E ---
Discharge Summary NAME: MATT TORRE : 1995 AGE: 21Y ADMITTED: 03/01/2017 DISCHARGED: 03/06/2017 DISCHARGE DIAGNOSIS: Duodenal ulcer with duodenal ulcer bleed. PROCEDURES PERFORMED DURING HOSPITALIZATION: 1. Esophagogastroduodenoscopy performed by Dr. Matt Oates on 03/01/2017. 2. Pyloroplasty, duodenal ulcer over sew, truncal vagotomy performed by Dr. Matt Oates on 03/01/2017. HOSPITAL COURSE: Patient underwent the above-mentioned surgery. He did well postoperatively. He had no evidence of further bleeding. He was tolerating a diet well at the time of discharge. His drain was pulled. Patient has now been discharged to home in good condition. He will follow up with me next week. He is encouraged to stay active at home, but avoid strenuous activity. DISCHARGE MEDICATIONS: 1. Helidac, take as directed for 2 weeks. 2. Nexium 40 mg, 1 p.o. b.i.d. 3. Percocet 1 p.o. q.4 h. p.r.n. pain. I will plan to keep him on his proton pump inhibitor until I do a followup EGD in about a month to ensure complete healing. DICTATING PHYSICIAN: MATT OATES M.D. [id number] [facility]#: [id number] ID: [id number] JOB#: [id number] ACCT: [id number] cc:Penelope PRAJAPATI M.D. >
[2017-03-06 09:53] VITALS: BP 124/67
== END 2017-03-06 10:30 | disposition home or self-care (01) | DRG 327 ==
LOC: ER 13:19 → EH 18:47 → UNDOADMIN 19:22 → EH 19:22 → ICU 03-02 00:13 → 4S 03-03 00:58
PROVIDERS: ATTEND Surgery
PROC: 008Q0ZZ Division of Vagus Nerve, Open Approach (ICD-10-PCS; 2017-03-01)
PROC: 0DJ08ZZ Inspection of Upper Intestinal Tract, Via Natural or Artificial Opening Endoscopic (ICD-10-PCS; 2017-03-01)
PROC: 30233N1 Transfusion of Nonautologous Red Blood Cells into Peripheral Vein, Percutaneous Approach (ICD-10-PCS; 2017-03-01)
PROC: 0DQ90ZZ Repair Duodenum, Open Approach (ICD-10-PCS; principal; 2017-03-01 19:25)
DX: K26.4 Chronic or unspecified duodenal ulcer with hemorrhage (principal); D62 Acute posthemorrhagic anemia; R00.0 Tachycardia, unspecified; Z79.899 Other long term (current) drug therapy; Z87.11 Personal history of peptic ulcer disease; Z88.8 Allergy status to other drugs, medicaments and biological substances
CPT/HCPCS: 36415; 36430; 43255; 74000; 790; 80053; 82272; 83690; 85025; 85027; 85610; 85730; 86850; 86900; 86901; 86920; 88304; 96361; 96374; 96375; 99285; J0131; J0171; J0330; J1100; J1170; J1610; J1741; J2250; J2310; J2405; J2704; J2765; J3010; J3490; J7030; P9016; P9017; P9035; S0164

== ENCOUNTER → 2017-03-14 | Outpatient (CLI) | payer OTHER ==
[2017-03-14 11:44] LABS: ABSOLUTE BASOPHILS # (AUTO) 0.1 10^3/uL (0.0-0.2); ABSOLUTE EOSINOPHILS # (AUTO) 0.2 10^3/uL (0.0-0.6); ABSOLUTE LYMPHOCYTES (AUTO) 1.5 10^3/uL (0.5-4.7); ABSOLUTE MONOCYTES (AUTO) 0.6 10^3/uL (0.1-1.4); ABSOLUTE NEUT (AUTO) 3.6 10^3/uL (1.7-8.2); BASOPHILS % (AUTO) 1.2 % (0-2); EOSINOPHILS % (AUTO) 3.7 % (0-6); HEMATOCRIT 36.3 % (37.9-51.0); HEMOGLOBIN 12.2 g/dL (13.5-17.0); HGB HCT DIFFERENCE 0.3; LYMPHOCYTES % (AUTO) 24.7 % (13-45); MEAN CORPUSCULAR HEMOGLOBIN 29.4 pg (27.0-33.4); MEAN CORPUSCULAR HGB CONC 33.7 g/dL (32.0-36.0); MEAN CORPUSCULAR VOLUME 87 fl (80-97); MONOCYTES % (AUTO) 9.8 % (3-13); RED BLOOD COUNT 4.15 10^6/uL (4.35-5.55); RED CELL DISTRIBUTION WIDTH 14.1 % (11.5-14.0); SEGMENTED NEUTROPHILS % (AUTO) 60.6 % (42-78); WHITE BLOOD COUNT 5.9 10^3/uL (4.0-10.5)
[2017-03-14 12:12] LABS: ANION GAP 15 (5-19); BLOOD UREA NITROGEN 16 mg/dL (7-20); CALCIUM 10.4 mg/dL (8.4-10.2); CARBON DIOXIDE 26 mmol/L (22-30); CHLORIDE 101 mmol/L (98-107); GLUCOSE 96 mg/dL (75-110); POTASSIUM 4.9 mmol/L (3.6-5.0); SODIUM 141.7 mmol/L (137-145)
--- NOTE | 2017-03-14 14:45 | RADIOLOGY REPORT (SQ) ---
EXAM DESCRIPTION: CT ABDOMEN WITH IV ORAL CONT COMPLETED DATE/TIME: 03/14/2017 2:31 pm REASON FOR STUDY: DUODENAL ULCER, UNSP ACUTE OR CHRONIC, W/O HEMORRHAGE OR PERF R10.9 UNSPECIFIE D ABDOMINAL PAIN K26.9 DUODENAL ULCER, UNSP ACUTE OR CHRONIC, W/O HEMOR OR COMPARISON: None. TECHNIQUE: CT scan of the abdomen performed with intravenous and with oral contrast using helical sc anning technique with dynamic intravenous contrast injection. Images reviewed with lung, soft tissue, and bone windows. Reconstructed coronal and sagittal MPR images reviewed. Delayed images for evaluat ion of the urinary system also acquired and evaluated. All images stored on PACS. All CT scanners at this facility use dose modulation, iterative reconstruc tion, and/or weight based dosing when appropriate to reduce radiation dose to as low as reasonably ac hievable (ALARA). [facility]: Dose Right [facility]: CareDose [facility]: Dose Right [facility]: Teradose 4D [facility]: EndoDex CONTRAST TYPE AND DOSE: 98mL Isovue 370- low osmolar. RENAL FUNCTION: GFR > 60. RADIATION DOSE: 20.91 mGy. LIMITATIONS: None. FINDINGS: LOWER CHEST: No significant findings. No nodules or infiltrates. LIVER: Normal size. No masses or dilated ducts. SPLEEN: Normal size. No focal lesions. PANCREAS: No masses. No significant calcifications. No adjacent inflammation or peripancreatic fluid collections. Pancreatic duct not dilated. GALLBLADDER: No identified stones by CT criteria. No inflammatory changes to suggest cholecystitis. ADRENAL GLANDS: No significant masses or asymmetry. RIGHT KIDNEY AND URETER: No solid masses. No significant calcifications. No hydronephrosis or hyd roureter. LEFT KIDNEY AND URETER: No solid masses. No significant calcifications. No hydronephrosis or hydr oureter. AORTA AND VESSELS: No aneurysm. No dissection. Renal arteries, SMA, celiac without stenosis. RETROPERITONEUM: No retroperitoneal adenopathy, hemorrhage or masses. BOWEL AND PERITONEAL CAVITY: Stranding of the fat anterior to the stomach extending to the ventral mi dline surgical wound. No evidence of organized fluid collection. No bowel obstruction. No free air or ascites. APPENDIX: Not visualized. ABDOMINAL WALL: Postsurgical changes upper abdominal anterior body wall. BONES: No significant or acute findings. OTHER: Gynecomastia. IMPRESSION: Postsurgical changes consistent with recent surgical history. No evidence of abscess or obstruction. TECHNICAL DOCUMENTATION: JOB ID: [id number] Quality ID # [id number]: Final reports with documentation of one or more dose reduction techniques (e.g., Au tomated exposure control, adjustment of the mA and/or kV according to patient size, use of iterative reconstruction technique) 2010 [employer]- All Rights Reserved
== END ==
LOC: RAD 10:54
PROVIDERS: ATTEND Surgery
DX: K26.9 Duodenal ulcer, unspecified as acute or chronic, without hemorrhage or perforation (principal); R10.9 Unspecified abdominal pain
CPT/HCPCS: 36415; 74160; 80048; 85025; 86677

== ENCOUNTER 2019-10-27 19:24 | Emergency (ER) | payer SELFPAY ==
[2019-10-27 19:54] VITALS: BP 138/80
[2019-10-27] MEDS ORDERED: KETOROLAC TROMETHAMINE 60 MG/2 ML SDV IM ONE (20:18)
[2019-10-27] MEDS ORDERED: LIDOCAINE 5% (700 MG) TRANSDERMAL ADH..PATCH TP ONE (20:18)
--- NOTE | 2019-10-27 20:23 | ER Document Report ---
HPI - HPI Time Seen by Provider: 10/27/19 20:14 Pain Level: 2 Notes: Patient is a 24-year-old male no significant past medical history who presents complaining of "a pulled muscle" in his back on the right side of his mid thoracic area when he tried to lift the tailgate up on his vehicle this afternoon. Patient states that the pain is worse with twisting and bending. Pain does not radiate. 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 He is able to eat and drink without difficulty. He is urinating normally and having normal bowel movements. No history of spinal abscess, diabetes, IV drug abuse. Denies any headache, fever, URI, sore throat, chest pain, palpitations, syncope, cough, shortness of breath, wheeze, dyspnea, abdominal pain, nausea/vomiting/diarrhea, urinary retention, dysuria, hematuria, loss of control of bowel or bladder, numbness/tingling, saddle anesthesia, muscle paralysis/weakness, or rash. - ROS Systems Reviewed and Negative: Yes All other systems reviewed and negative - REPRODUCTIVE Reproductive: DENIES: : Past Medical History - Social History Smoking Status: Never Smoker Family History: DM Patient has suicidal ideation: No Patient has homicidal ideation: No Pulmonary Medical History: Denies: Hx Tuberculosis Neurological Medical History: Denies: Hx Seizures Renal/ Medical History: Denies: Hx Peritoneal Dialysis GI Medical History: Reports: Hx Ulcer Musculoskeletal Medical History: Reports Hx Musculoskeletal Deformity Psychiatric Medical History: Denies: Hx Depression Past Surgical History: Reports: Hx Abdominal Surgery - ulcer repari (endoscope), Hx Orthopedic Surgery. Denies: Hx Pacemaker - Immunizations Immunizations up to date: No Hx Diphtheria, Pertussis, Tetanus Vaccination: No Vertical Provider Document - CONSTITUTIONAL Agree With Documented VS: Yes Notes: PHYSICAL EXAMINATION: GENERAL: Well-appearing, well-nourished and in no acute distress. LUNGS: Breath sounds clear to auscultation bilaterally and equal. No wheezes rales or rhonchi. HEART: Regular rate and rhythm without murmurs, rubs, gallops. ABDOMEN: Soft, nontender, nondistended abdomen. No guarding, no rebound. Normal bowel sounds present. No CVA tenderness bilaterally. No pulsatile mass Musculoskeletal: LE's b/l: FROM to passive/active. Strength 5+/5. No deficits noted. No bony tenderness of extremities. Back: FROM to passive/active. Strength 5+/5. No vertebral point tenderness, stepoffs, or deformities. No other bony tenderness, erythema, swelling, or ecchymosis. SLR negative b/l. + Reproducible tenderness to the T-paraspinal mm Rt side. Mild spasming. No SI jt tenderness. No foot drop Extremities: No cyanosis, clubbing, or edema b/l. Peripheral pulses 2+. Capillary refill less than 2 seconds. NEUROLOGICAL: Normal speech, normal gait. Normal sensory, motor exams. Reflexes 2+ b/l. PSYCH: Normal mood, normal affect. SKIN: Warm, Dry, normal turgor, no rashes or lesions noted. - INFECTION CONTROL TRAVEL OUTSIDE OF THE [place] IN LAST 30 DAYS: No Course - Re-evaluation Re-evalutation: 10/27/19 20:20 Patient is an afebrile, well-hydrated, 24-year-old male who presents to the ED with rt thoracic back pain, suspect strain/sprain. Vitals are acceptable. PE is otherwise unremarkable for any focal neurological deficits. Patient was given Toradol and a Lidoderm patch. He has no significant tachycardia, tachypnea, or hypoxia. He is nontoxic-appearing and is tolerating p.o. without difficulties. There are no signs of infection. No other red flag symptoms noted. No other labs or imaging warranted at this time based on H&P. Low suspicion for any meningitis, fracture, expanding/ruptured AAA, cauda equina syndrome, epidural mass lesion/abscess, herniated disc causing severe spinal stenosis, or other systemic infection at this time. Patient is aware that his condition can change from initial presentation and that he needs monitor symptoms closely for any acute changes. I will send him home with a prescription for Robaxin and Lidoderm. Patient does not want Motrin because of stomach issues. Conservative measures otherwise for symptoms. Recheck with your PCM in 3-5 days. Consider consult with orthopedic/physical therapy. Return to the ED with any worsening/concerning symptoms otherwise as reviewed discharge. Patient is in agreement. - Vital Signs Vital signs: Temp Pulse Resp BP Pulse Ox 98.3 F 69 18 138/80 H 99 10/27/19 19:53 10/27/19 19:53 10/27/19 19:53 10/27/19 19:53 10/27/19 19:53 Discharge - Discharge Clinical Impression: Right-sided thoracic back pain Qualifiers: Chronicity: acute Qualified Code(s): M54.6 - Pain in thoracic spine Condition: Stable Disposition: HOME, SELF-CARE Instructions: Muscle Relaxers ([facility]) Additional Instructions: Rest, Ice Tylenol as needed Light stretches daily Strength exercises as able Moist heat and massage may help F/u with your PCP in 3-5 days for a recheck Consider consult(s) with Orthopedics/physical therapy for ongoing/worsening symptoms Return to the ED with any worsening symptoms and/or development of fever, hea dache, chest pain, palpitations, syncope, shortness of breath, trouble breathing, abdominal pain, n/v/d, blood in stool/urine, loss of control of bowel/bladder, urinary retention, muscle weakness/paralysis, saddle anesthesia, numbness/tingling, or other worsening symptoms that are concerning to you. Prescriptions: Lidocaine [Lidoderm 5% (700 mg) Transdermal Patch] 1 patch TP DAILY #10 adh..patch Methocarbamol [Robaxin 750 mg Tablet] 750 mg PO TID PRN #10 tablet PRN Reason: Forms: Elevated Blood Pressure Referrals: MAYANK SHAH MD [Primary Care Provider] - Follow up as needed [facility] [Provider Group] - Follow up as needed
== END 2019-10-27 20:43 | disposition home or self-care (01) ==
LOC: ER 19:24
DX: M54.6 Pain in thoracic spine (principal)
CPT/HCPCS: 99283; 96372; J1885

== ENCOUNTER 2019-10-30 22:47 | Emergency (ER) | payer SELFPAY ==
[2019-10-31] MEDS ORDERED: DEXAMETHASONE SOD PHOS INJ 10 MG/1 ML VIAL IM ONE (04:25)
--- NOTE | 2019-10-31 04:55 | ER Document Report ---
HPI - HPI Time Seen by Provider: 10/31/19 03:57 Pain Level: 4 Context: Patient is a 24-year-old male that comes emergency department for chief complaint of right mid to lower back pain. He states that he was seen several days ago for pain in the same place, he states that it started when he attempted to lift a tailgate up on his vehicle. He states that pain and stiffness worsen, he was seen here, had Toradol, Robaxin, Lidoderm patches, he states that symptoms actually resolved but he did continue to try to work and over the course of today at work his back started tightening up and getting worse. He states he ran out of Robaxin but it did work. He denies focal numbness or weakness, incontinence, IV drug abuse history or current IV drug abuse, fever/chills, impact injury. He states he got stomach ulcers once from anti- inflammatories so he tries to avoid NSAIDs but he denies any medical history otherwise. - EENT EENT: DENIES: Sore Throat, Ear Pain, Eye problems - NEURO Neurology: DENIES: Headache, Weakness, Vision blurred, Dizzinesss / Vertigo - CARDIOVASCULAR Cardiovascular: DENIES: Chest pain - RESPIRATORY Respiratory: DENIES: Trouble Breathing, Coughing - GASTROINTESTINAL Gastrointestinal: DENIES: Abdominal Pain, Black / Bloody Stools - URINARY Urinary: DENIES: Dysuria, Urgency, Frequency - REPRODUCTIVE Reproductive: DENIES: :, Postmenopausal, Abnormal bleeding / discharge - MUSCULOSKELETAL Musculoskeletal: DENIES: Extremity pain Past Medical History - General Information source: Patient - Social History Smoking Status: Never Smoker Frequency of alcohol use: None Drug Abuse: None Lives with: Family Family History: DM Patient has suicidal ideation: No Patient has homicidal ideation: No Pulmonary Medical History: Denies: Hx Tuberculosis Neurological Medical History: Denies: Hx Seizures Renal/ Medical History: Denies: Hx Peritoneal Dialysis GI Medical History: Reports: Hx Ulcer Musculoskeletal Medical History: Reports Hx Musculoskeletal Deformity Psychiatric Medical History: Denies: Hx Depression Past Surgical History: Reports: Hx Abdominal Surgery - ulcer repari (endoscope), Hx Orthopedic Surgery. Denies: Hx Pacemaker - Immunizations Immunizations up to date: No Hx Diphtheria, Pertussis, Tetanus Vaccination: No Vertical Provider Document - CONSTITUTIONAL General Appearance: WD/WN, No Apparent Distress - Patient moves slightly stiffly but he is overall very well-appearing and in no distress - INFECTION CONTROL TRAVEL OUTSIDE OF THE [place] IN LAST 30 DAYS: No - HEENT HEENT: Atraumatic, Normal ENT Exam, Normocephalic - NECK Neck: Normal Inspection - RESPIRATORY Respiratory: Breath Sounds Normal, No Respiratory Distress, Chest Non-Tender - CARDIOVASCULAR Cardiovascular: Regular Rate, Regular Rhythm - GI/ABDOMEN Gastrointestinal: Abdomen Soft, Abdomen Non-Tender. negative: Abdomen Tender - BACK Back: negative: Normal Inspection - There is some tenderness with rigid muscle fibers along the para spinal muscles at the lower thoracic and upper lumbar area. No midline tenderness, no saddle anesthesia, no signs of trauma. Normal upper and lower extremity range of motion, normal strength, normal distal neurovascular exam. - MUSCULOSKELETAL/EXTREMETIES Musculoskeletal/Extremeties: MAEW, FROM, Non-Tender - NEURO Level of Consciousness: Awake, Alert, Appropriate Motor/Sensory: No Motor Deficit, No Sensory Deficit - DERM Integumentary: Warm, Dry, No Rash Course - Re-evaluation Re-evalutation: Patient has area consistent with muscle spasm with tight rigid muscle fibers and tenderness along the lower thoracic and upper lumbar area on the right side. No trauma, no concerning symptoms reported, reassuring exam. I do suspect this is muscular strain with spasm, patient has been working instead of allowing this to resolve, symptoms did improve with medications. Discussed options. He was given dexamethasone because he does not want to take NSAIDs, Robaxin refill was provided, work release was provided. Discussed follow-up and return precautions. Patient states appreciation and agreement. - Vital Signs Vital signs: Temp Pulse Resp BP Pulse Ox 98.4 F 69 16 140/82 H 100 10/30/19 22:52 10/31/19 01:47 10/31/19 01:47 10/31/19 01:47 10/31/19 01:47 Discharge - Discharge Clinical Impression: Right-sided back pain Qualifiers: Back pain location: back pain in unspecified location Chronicity: acute Qualified Code(s): M54.9 - Dorsalgia, unspecified Condition: Stable Disposition: HOME, SELF-CARE Additional Instructions: Your evaluation is most consistent with muscular strain and developed muscle spasm. Apply heat over the area, size the area, avoid lifting or twisting. Take Robaxin as prescribed. Symptoms should gradually resolve. Follow-up with primary care for additional management. Return if you worsen including developing numbness, severe pain, vomiting, fever, or any other concerning symptoms. Prescriptions: Methocarbamol [Robaxin-750] 750 mg PO QID PRN #20 tablet PRN Reason: Forms: Return to Work
[2019-10-31 05:19] VITALS: BP 123/71
== END 2019-10-31 05:08 | disposition home or self-care (01) ==
LOC: ER 22:47
DX: M54.5 Low back pain (principal); X50.0XXA Overexertion from strenuous movement or load, initial encounter
CPT/HCPCS: 99283; 96372; J1100